=== PATIENT | female | born 1945 | race Caucasian/White ===

== ENCOUNTER 2016-07-02 08:53 | Day surgery (SDC) | payer MEDICARE, BC ==
--- NOTE | ~2016-07-02 | EGD ---
EGD REPORT [facility] [address] [id number] NAME: AUGUSTIN PIZARRO : [birth year] STATUS : REG [facility] [place] PAT#: [id number] AGE: 70 ADM/REG DATE : 07/02/16 MR#: [id number] REPORT SERV DATE: 07/02/16 DICTATED BY: HSAWNA HO DATE: 07/02/16 REPORT STATUS : Draft TRANSCRIBED BY: [facility] DATE: 07/02/16 Endoscopy Center Patient Name: Augustin Pizarro Date of : 1945 Attending MD: SHAWNA HO MD Procedure Date No Time: 07/02/2016 Procedure: Upper GI endoscopy Indications: Anemia, Heme positive stool Referring MD: TAWNYA SINGH Medicines: Monitored Anesthesia Care Complications: No immediate complications. Procedure: Pre-Anesthesia Assessment: - ASA Grade Assessment: IV - A patient with severe systemic disease that is a constant threat to life. After obtaining informed consent, the endoscope was passed under direct vision. Throughout the procedure, the patient's blood pressure, pulse, and oxygen saturations were monitored continuously. The GIF [id number] was introduced through the mouth, and advanced to the second part of duodenum. The upper GI endoscopy was accomplished without difficulty. The patient tolerated the procedure well. Findings: The examined esophagus was normal. A small hiatus hernia was present. Patchy mild inflammation characterized by adherent blood and erythema was found in the gastric body. Biopsies were taken with a cold forceps for histology. The cardia and gastric fundus were normal on retroflexion. The duodenal bulb and 2nd part of the duodenum were normal. Biopsies were taken with a cold forceps for histology. Impression: - Normal esophagus. - Hiatus hernia. - Gastritis. Biopsied. - Normal duodenal bulb and 2nd part of the duodenum. Biopsied. Recommendation: - Patient has a contact number available for emergencies. The signs and symptoms of potential delayed complications were discussed with the patient. Return to normal activities tomorrow. Written discharge instructions were provided to the patient. - Regular diet. EGD REPORT [address] [place]. [address] NAME: AUGUSTIN PIZARRO : [birth year] STATUS : REG [facility] [place] PAT#: [id number] AGE: 70 ADM/REG DATE : 07/02/16 MR#: [id number] REPORT SERV DATE: 07/02/16 DICTATED BY: SHAWNA HO DATE: 07/02/16 REPORT STATUS : Draft TRANSCRIBED BY: [employer] DATE: 07/02/16 - Continue present medications. - Await pathology results. - Return to GI clinic in 3 months. - Resume Coumadin (warfarin) and Lovenox (enoxaparin) at prior doses today. Refer to managing physician for further adjustment of therapy. Procedure Code(s): --- Professional --- 85576, Esophagogastroduodenoscopy, flexible, transoral; with biopsy, single or multiple Diagnosis Code(s): --- Professional --- K44.9, Diaphragmatic hernia without obstruction or gangrene K29.70, Gastritis, unspecified, without bleeding D64.9, Anemia, unspecified R19.5, Other fecal abnormalities CPT copyright 2013 [employer] [place] [employer]. All rights reserved. The codes documented in this report are preliminary and upon tool profiling machine set up operator review may be revised to meet current compliance requirements. SHAWNA HO MD 07/02/2016 10:54 AM This report has been signed electronically. Number of Addenda: 0 Note Initiated On: 07/02/2016 10:39 AM Scope Withdrawal Time 0 hours 0 minutes 0 seconds [id number] [id number]
[~2016-07-02 08:53] MED LIST: ADVAIR250 INH; AMB10 PO; ASA5GR PO; ASABAYER PO; C1 PO; C2 PO; C25 PO; CALTRA600D PO; CIP5 PO; COREG12 PO; COREG3 PO; COREG6 PO; CYANO1000T PO; FLECAINIDE50 MG PO; HEMOCYTE324 MG PO; HEMOCYTET PO; IMOD PO; IMODIUM ADV1 CHW PO; JANUVIA100 MG PO; KLOR-CON M2020 MEQ PO; KLOR-CON20 MEQ PO; L20 PO; L40 PO; LEVAQUIN750 MG PO; LEVOTHYROXIN100 MCG PO; LEVOXYL75 MCG PO; LOP50 PO; LORTAB 5 PO; LOVENOX40 SC; MYRBETRIQ25 MG PO; NORV5 PO; P20 PO; PRIN10 PO; PROAIR HFA INH; PROTONIX PO; PYR200 PO; ROCALTROL0.25 MCG OR; SINGULAIR1 PO; SPIRO25 PO; SUPER B COMP OR; SUPER B COMP PO; SYMBICORT 160/41 INH INH; TAMBO50 PO; THERA TEARS OR; TIROSINT100 MCG PO; ULTRAM ER100 MG PO; ULTRAM ER200 MG PO; ULTRAM50 PO; VESICARE5 PO; VITAMIN B PO; VITAMIN B-121000 MC1 SL; VITAMIN D31000 UNIT PO; WARFARIN; ZANTAC300 MG PO; ZOCOR20 PO; [UNRECOGNIZED DRUG - OTHER] OP; [UNRECOGNIZED DRUG - OTHER] PO
[2016-07-02 09:47] LABS: INTERNATIONAL NORMAL RATI 1.7 UNITS (-)
== END 2016-07-02 23:59 | disposition home health service (06) ==
LOC: DMU 08:53
PROVIDERS: Internal Medicine Gastroenterology
PROC: 0DB98ZX Excision of Duodenum, Via Natural or Artificial Opening Endoscopic, Diagnostic (ICD-10-PCS; 2016-07-02)
PROC: 0DB68ZX Excision of Stomach, Via Natural or Artificial Opening Endoscopic, Diagnostic (ICD-10-PCS; principal; 2016-07-02 10:30)
DX: K44.9 Diaphragmatic hernia without obstruction or gangrene (principal); I48.91 Unspecified atrial fibrillation; J45.909 Unspecified asthma, uncomplicated; E03.9 Hypothyroidism, unspecified; E78.5 Hyperlipidemia, unspecified; I11.0 Hypertensive heart disease with heart failure; I50.9 Heart failure, unspecified; Z88.5 Allergy status to narcotic agent; Z88.8 Allergy status to other drugs, medicaments and biological substances; Z87.891 Personal history of nicotine dependence; J44.9 Chronic obstructive pulmonary disease, unspecified; E11.9 Type 2 diabetes mellitus without complications; Z98.890 Other specified postprocedural states
CPT/HCPCS: 85610; 88305